=== PATIENT | male | born 1965 | race Caucasian/White ===

== ENCOUNTER 2016-06-23 13:09 | Emergency (ER) | payer OTHER ==
[~2016-06-23] VITALS: Ht 188 cm; Wt 102.7 kg
[2016-06-23] MEDS ORDERED: INDOCIN50 MG PO (16:26)
[2016-06-23] MEDS ORDERED: ULTRACET1 TABLET PO (16:27)
[2016-06-23 16:53] VITALS: BP 132/93
== END 2016-06-23 16:53 | disposition home or self-care (01) ==
LOC: EME 13:09
DX: M75.91 Shoulder lesion, unspecified, right shoulder (principal)
CPT/HCPCS: 73030; 99281; 99283